=== PATIENT | male | born 1985 | race Caucasian/White ===

== ENCOUNTER 2020-05-24 07:27 | Emergency (ER) | payer SELFPAY ==
--- NOTE | ~2020-05-24 | CT_ITS ---
EXAMINATION: CT abdomen pelvis w con DATE: 05/24/2020 08:45 INDICATION: Left lower quadrant abdominal pain TECHNIQUE: Computed tomography (CT) of the abdomen and pelvis was performed with 100 cc Omnipaque 350 intravenous contrast. Automated exposure control and iterative reconstruction technique were employe d. Exam dose: 361.36 mGy-cm total exam DLP. COMPARISON: 01/18/2019 CT abdomen pelvis FINDINGS: The lung bases are clear. Normal heart size. No pericardial or pleural effusion. Diffuse hepatic steatosis. No hepatic, splenic, pancreatic, and adrenal or renal space-occupying mass lesion is evident. No bile duct or pancreatic duct dilatation. No urinary tract calculus or hydroureteronephrosis. Normal caliber of the abdominal aorta. No intrape ritoneal or retroperitoneal or pelvic mass lesion or adenopathy or ascites. There is mild generalized thickening of the urinary bladder wall. The prostate appears moderately prominent in size. There is epiploic appendagitis in the proximal sigmoid colon on the left. This is usually self-limite d and resolve spontaneously. Otherwise no bowel obstruction, bowel wall thickening, pneumatosis or intraperitoneal free air is det ected. No CT evidence of appendicitis. Included skeletal structures are unremarkable. IMPRESSION: Proximal sigmoid colon epiploic appendagitis, left lower quadrant/pelvic area, in region of clinical complaint of pain Reviewed, dictated and finalized at [facility]. Reviewed, dictated and finalized at location [facility]. IMPRESSION: Proximal sigmoid colon epiploic appendagitis, left lower quadrant/ pelvic area, in region of clinical complaint of pain
[2020-05-24 07:39] VITALS: BP 154/111; PULSE 83; RESP 16; TEMP 37; O2SAT 99
--- NOTE | 2020-05-24 07:42 | ED.ABDPAIN ---
HPI - Abdominal Pain General Chief Complaint: Abdominal Pain Stated Complaint: abd pain Time Seen by Provider: 05/24/20 07:35 Source: patient Mode of arrival: ambulatory Limitations: no limitations History of Present Illness HPI narrative: This patient is a 34 year old male who presents for evaluation of left lower abdominal pain. Patient states he developed pain yesterday and it has been constant. He states he had similar pain 1 week ago but it only lasted 1 hour. He states his pain is worse when he bends or rides in a car. He denies associated nausea, vomiting, fever, chills or urinary complaints. MD elicited complaint: abdominal pain Onset (ago): day(s) Pain Consistency: constant Location: LLQ Pain scale (0-10): 5 Migration to: no migration Exacerbating factors: movement Relieving factors: nothing Related Data Home Medications Medication Instructions Recorded Confirmed amlodipine 10 mg PO DAILY 05/24/20 aspirin 325 mg PO DAILY 05/24/20 hydrochlorothiazide 12.5 mg PO DAILY 05/24/20 hydroxyzine HCl 25 mg PO BID PRN 05/24/20 lisinopril 20 mg PO DAILY 05/24/20 omeprazole 40 mg PO DAILY 05/24/20 sertraline 100 mg PO DAILY 05/24/20 Allergies Allergy/AdvReac Type Severity Reaction Status Date / Time No Known Allergies Allergy Verified 05/24/20 07:42 Review of Systems Review of Systems: All systems reviewed & are unremarkable except as noted in HPI and below Constitutional: Constitutional: Denies chills and Denies fever(s) Gastrointestinal: Gastrointestinal: Reports abdominal pain, Denies diarrhea, Denies nausea and Denies vomiting Genitourinary: Genitourinary: Denies hematuria, Denies dysuria, Reports testicular pain and Denies urinary frequency Musculoskeletal: Musculoskeletal: Denies back pain [facility] Past Medical History Medical History (Updated 05/24/20 @ 09:29 by Adore Box MD) Anxiety Hypertension Surgical History Surgical History (Updated 05/24/20 @ 07:43 by Adore Box MD) History of nasal surgery Social History Social History (Updated 05/24/20 @ 07:43 by Adore Box MD) Smoking packs per day: 1 Smoking cigarettes per day: 20.0 Smoking status: Current every day smoker Alcohol intake: current Alcohol use details: daily drinker Substance use: never Gender identity (if verbalized by the patient): Male Exam Narrative: Exam Narrative: GENERAL: Well-appearing, well-nourished, and in no acute distress. HEAD: Normocephalic, atraumatic EYES: PERRLA and EOMI, conjunctiva clear without discharge THROAT:Mucous membranes moist, Oropharynx normal without erythema, exudate, peritonsillar swelling or fluctuance NECK: Supple, without lymphadenopathy or mass RESPIRATORY: No respiratory distress, Airway patent, Respirations non-labored, Clear to auscultation without rales, rhonchi or wheeze HEART: Regular rate and rhythm. No murmur heard. Normal peripheral pulses. ABDOMEN: Soft,LLQ tenderness, nondistended, normal active bowel sounds. No masses. No rebound or guarding, No organomegaly. EXTREMITIES: No edema, normal strength with full range of motion. SKIN: Warm, dry, normal color without rash NEURO: Alert and oriented x3. CN 2-12 grossly intact. No focal deficits. PSYCH: Normal mood and affect. Course Reevaluation(s) Reevaluation #1: I have discussed with patient CT diagnosis and treatment. He understands discharge plan Date: 05/24/20 Time: 09:26 Vital Signs Vital signs: Vital Signs Temperature 98.6 F 05/24/20 07:39 Pulse Rate 83 05/24/20 07:39 Respiratory Rate 16 05/24/20 07:39 Blood Pressure 154/111 H 05/24/20 07:39 Pulse Oximetry 99 05/24/20 07:39 Temperature 98.6 F 05/24/20 07:39 Pulse Rate 81 05/24/20 09:39 Respiratory Rate 16 05/24/20 09:39 Blood Pressure 157/108 H 05/24/20 09:39 Pulse Oximetry 100 05/24/20 09:39 MDM - Abdominal Pain Lab Data Attestation: I reviewed the patient's lab
[2020-05-24] MEDS: LACTATED RINGERS 1,000 ML 999 ML IV CONT (07:59)
[2020-05-24 08:12] LABS: Basophils Absolute Auto 0.1 K/mm3 (0.0-0.1); Eosinophils Absolute Auto 0.1 K/mm3 (0-0.3); Eosinophils Percent Auto 1.7 % (0-4.4); Hematocrit 50.1 % (42.0-52.0); Immature Granulocyte Absolute 0.03 K/mm3 (0.00-0.031); Immature Granulocyte Percent A 0.5 % (0-0.5); Lymphocytes Absolute Auto 1.49 K/mm3 (0.9-3.2); Lymphocytes Percent Auto 25.8 % (18.3-44.2); Mean Corpuscular HGB Conc 33.9 g/dl (32-36); Mean Corpuscular Hemoglobin 33.7 pg (26-34); Mean Corpuscular Volume 99.2 fl (80-100); Mean Platelet Volume 10.2 fl (7.4-10.4); Monocytes Absolute Auto 0.6 K/mm3 (0.1-0.6); Monocytes Percent Auto 10.2 % (2.6-8.5); Neutrophils Absolute Auto 3.5 K/mm3 (1.3-6.7); Neutrophils Percent Auto 60.8 % (45.5-73.1); Platelet Count Result 283 k/mm3 (150-375); Red Blood Count 5.05 M/mm3 (4.6-6.20); Red Cell Distribution Width 12.5 % (11.5-14.5); White Blood Count 5.8 K/mm3 (4.5-10.0)
[2020-05-24 08:17] LABS: Add Urine Microscopic? NO; Appearance Urine Clear (Clear); Bacteria Urine Trace /hpf; Bilirubin Urine Negative (Negative); Blood Urine Negative (Negative); Color Urine Yellow (Yellow); Glucose Urine UA Negative (Negative); Ketones Urine Negative (Negative); Leukocyte Esterase Ur Negative LEU/UL (Negative); Mucus Urine Heavy /lpf; Nitrate Urine Negative (Negative); Protein Urine Negative (Negative); RBC Urine 0-2 /hpf (0-2); Specific Grav Ur 1.016 (1.001-1.035); Urobilinogen Urine Negative mg/dL (<2.0); WBC Urine 0-3 /hpf
[2020-05-24 08:24] LABS: Alanine Aminotransferase 48 U/L (4-50); Albumin Level 4.6 g/dL (3.5-5.1); Alkaline Phosphatase 103 U/L (38-126); Aspartate Amino Transferase 47 U/L (17-59); Bilirubin,Total 0.4 mg/dL (0.2-1.3); Blood Urea Nitrogen 7 mg/dL (9-20); Calcium 9.4 mg/dL (8.4-10.2); Carbon Dioxide 27 mmol/L (22-30); Chloride 106 mmol/L (98-107); Estimated CRCL calculation 132 ml/min; Estimated Glomerular Filt Rate > 60; Glucose 121 mg/dL (75-110); Lipase 112 U/L (23-300); Potassium 4.3 mmol/L (3.4-5.0); Sodium 140 mmol/L (137-145)
[2020-05-24 09:39] VITALS: BP 157/108; PULSE 81; RESP 16; O2SAT 100
--- NOTE | 2020-05-29 09:44 | PC.NURSE ---
Late entry: Iv fluids completed prior to discharge 05/24/2020
== END 2020-05-24 09:40 | disposition home or self-care (01) ==
PROVIDERS: Emergency Provider General Practice
DX: K63.89 Other specified diseases of intestine (principal); R10.32 Left lower quadrant pain; F41.9 Anxiety disorder, unspecified; I10 Essential (primary) hypertension; Z79.82 Long term (current) use of aspirin; F17.210 Nicotine dependence, cigarettes, uncomplicated
CPT/HCPCS: 36415; 74177; 80053; 81003; 83690; 85025; 96360; 96361; 99284; J7120; Q9967

== ENCOUNTER 2021-06-06 10:25 | Emergency (ER) | payer OTHER, SELFPAY ==
--- NOTE | ~2021-06-06 | XR_ITS ---
XR chest 2V DATE: 06/06/2021 10:46 INDICATION: Left chest pain. Smoker. TECHNIQUE: PA and lateral views COMPARISON: 04/10/2018 PA and lateral chest FINDINGS: Normal heart size. No hilar or mediastinal enlargement. No pulmonary infiltrate or consolid ation, pleural effusion or pulmonary vascular congestion or pneumothorax. IMPRESSION: No active cardiopulmonary disease Reviewed, dictated and finalized at location [facility].
[2021-06-06 10:30] VITALS: BP 172/112; PULSE 80; RESP 16; TEMP 36.6; O2SAT 100
--- NOTE | 2021-06-06 10:35 | ECG_ITS ---
Measurements Intervals [place] Rate: 76 P: 63 AR: 190 QRS: 5 QRSD: 113 T: 52 QT: 370 QTc: 418 Interpretive Statements SINUS RHYTHM INTRAVENTRICULAR CONDUCTION DELAY BORDERLINE ECG Electronically Signed On 06-06-2021 11:11:35 CDT by Sarmad He D.O.
[2021-06-06 10:49] LABS: Basophils Absolute Auto 0.1 K/mm3 (0.0-0.1); Basophils Percent Auto 0.6 % (0.2-1.2); Eosinophils Percent Auto 0.3 % (0-4.4); Hematocrit 49.5 % (42.0-52.0); Hemoglobin 17.1 g/dL (14.0-18.0); Immature Granulocyte Absolute 0.03 K/mm3 (0.00-0.031); Immature Granulocyte Percent A 0.3 % (0-0.5); Lymphocytes Percent Auto 12.7 % (18.3-44.2); Mean Corpuscular HGB Conc 34.5 g/dl (32-36); Mean Corpuscular Hemoglobin 34.5 pg (26-34); Mean Corpuscular Volume 99.8 fl (80-100); Mean Platelet Volume 10.2 fl (7.4-10.4); Monocytes Absolute Auto 0.6 K/mm3 (0.1-0.6); Neutrophils Absolute Auto 6.8 K/mm3 (1.3-6.7); Neutrophils Percent Auto 79.1 % (45.5-73.1); Platelet Count Result 193 k/mm3 (150-375); Red Blood Count 4.96 M/mm3 (4.6-6.20); Red Cell Distribution Width 11.9 % (11.5-14.5); White Blood Count 8.6 K/mm3 (4.5-10.0)
[2021-06-06 10:59] LABS: Anion Gap 8 mmol/L (8-16); Blood Urea Nitrogen 7 mg/dL (9-20); Calcium 9.6 mg/dL (8.4-10.2); Carbon Dioxide 28 mmol/L (22-30); Chloride 106 mmol/L (98-107); Estimated CRCL calculation 113 ml/min; Estimated Glomerular Filt Rate > 60; Glucose 119 mg/dL (65-110); Sodium 142 mmol/L (137-145)
[2021-06-06 11:08] LABS: INR 0.8; Prothrombin Time 11.5 Seconds (11.1-14.7)
[2021-06-06 11:09] LABS: Partial Thromboplastin Time 27.5 SECONDS (22.3-36.8)
[2021-06-06 11:15] LABS: Troponin I < 0.012 ng/mL (0.000-0.034)
[2021-06-06 11:48] LABS: D Dimer 0.34 ug/mL (<0.48)
[2021-06-06] MEDS: KETOROLAC 30 MG/ML VIAL (*BKC) IV PUSH (12:06)
[2021-06-06 12:30] VITALS: BP 155/103; PULSE 66; RESP 20; O2SAT 99
--- NOTE | 2021-06-06 13:28 | ED.CHESTPAIN ---
HPI - Chest Pain General Chief Complaint: Chest Pain Stated Complaint: chest pain Time Seen by Provider: 06/06/21 10:29 History of Present Illness HPI narrative: Patient is a 35-year-old male who presents ER with left-sided chest pain. Ongoing for last month. Left-sided. Associate with shortness of breath at times. No sinus congestion or sore throat or productive cough. Cannot describe any aggravating symptoms. No alleviating factors. No history of UT. No history of PE. No lower extremity swelling. No hemoptysis. Related Data Home Medications Medication Instructions Recorded Confirmed amlodipine 10 mg PO DAILY 05/24/20 aspirin 325 mg PO DAILY 05/24/20 hydrochlorothiazide 12.5 mg PO DAILY 05/24/20 hydroxyzine HCl 25 mg PO BID PRN 05/24/20 lisinopril 20 mg PO DAILY 05/24/20 omeprazole 40 mg PO DAILY 05/24/20 sertraline 100 mg PO DAILY 05/24/20 Allergies Allergy/AdvReac Type Severity Reaction Status Date / Time No Known Allergies Allergy Verified 05/24/20 07:42 Review of Systems Review of Systems: All systems reviewed & are unremarkable except as noted in HPI and below Constitutional: Constitutional: Denies chills, Denies fever(s) and Denies weakness ENT: Denies nasal congestion and Denies sore throat Cardiovascular: Cardiovascular: Reports chest pain, Denies rapid heart rate and Denies radiating jaw, neck or arm pain Respiratory: Respiratory: Denies chest congestion, Denies cough and Reports dyspnea Gastrointestinal: Gastrointestinal: Denies abdominal pain, Denies nausea and Denies vomiting PMFSH Past Medical History Medical History (Updated 06/06/21 @ 13:50 by John Bowles MD) Anxiety Depression GERD (gastroesophageal reflux disease) Hypertension TIA (transient ischemic attack) Surgical History Surgical History (Updated 05/24/20 @ 07:43 by Adore Box MD) History of nasal surgery Social History Social History (Updated 05/24/20 @ 07:43 by Adore Box MD) Smoking packs per day: 1 Smoking cigarettes per day: 20.0 Smoking status: Current every day smoker Alcohol intake: current Alcohol use details: daily drinker Substance use: never Gender identity (if verbalized by the patient): Male Exam Narrative: GENERAL: Well-appearing, well-nourished, and in no acute distress. HEAD: Normocephalic, atraumatic. ENT: Mucous membranes moist. CHEST: Clear to auscultation. No respiratory distress. No reproducible chest wall tenderness. HEART: Regular rate and rhythm. Normal peripheral pulses. ABDOMEN: Soft, nontender, nondistended. EXTREMITIES: Normal range of motion. No edema. SKIN: Warm, dry, no rash. NEURO: Alert and oriented x3. PSYCH: Normal mood and affect. Course Course Emergency Course: Pain improved with Toradol. Informed results. Discharge home. Vital Signs Vital signs: Vital Signs Temperature 97.8 F 06/06/21 10:30 Pulse Rate 80 06/06/21 10:30 Respiratory Rate 16 06/06/21 10:30 Blood Pressure 172/112 H 06/06/21 10:30 Pulse Oximetry 100 06/06/21 10:30 Temperature 97.8 F 06/06/21 10:30 Pulse Rate 74 06/06/21 14:15 Respiratory Rate 18 06/06/21 14:15 Blood Pressure 144/104 H 06/06/21 14:15 Pulse Oximetry 100 06/06/21 14:15 MDM - Chest Pain Lab Data Result diagrams: 06/06/21 10:37 06/06/21 10:37 Labs: Lab Results 06/06/21 06/06/21 06/06/21 Range/Units 10:37 10:37 10:37 WBC 8.6 (4.5-10.0) K/mm3 RBC 4.96 (4.6-6.20) M/mm3 Hgb 17.1 (14.0-18.0) g/dL Hct 49.5 (42.0-52.0) % MCV 99.8 (80-100) fl MCH 34.5 H (26-34) pg MCHC 34.5 (32-36) g/dl RDW 11.9 (11.5-14.5) % Plt Count 193 (150-375) k/mm3 MPV 10.2 (7.4-10.4) fl Immature Gran % (Auto) 0.3 (0-0.5) % Neut % (Auto) 79.1 H (45.5-73.1) % Lymph % (Auto) 12.7 L (18.3-44.2) % [place] % (Auto) 7.0 (2.6-8.5) % Eos % (Auto) 0.3 (0-4.4) % Baso % (Auto)
[2021-06-06 13:45] VITALS: BP 147/107; PULSE 71; RESP 17; O2SAT 100
[2021-06-06 14:15] VITALS: BP 144/104; PULSE 74; RESP 18; O2SAT 100
[2021-06-06 14:28] LABS: Troponin I < 0.012 ng/mL (0.000-0.034)
[2021-06-06 15:15] VITALS: BP 152/116; PULSE 72; RESP 15; O2SAT 94
[2021-06-06 15:45] VITALS: BP 157/105; PULSE 64; RESP 20; O2SAT 98
== END 2021-06-06 15:45 | disposition home or self-care (01) ==
PROVIDERS: Emergency Medicine; Emergency Provider Emergency Medicine
DX: R07.9 Chest pain, unspecified (principal); I10 Essential (primary) hypertension; K21.9 Gastro-esophageal reflux disease without esophagitis; Z86.73 Personal history of transient ischemic attack (TIA), and cerebral infarction without residual deficits; F41.9 Anxiety disorder, unspecified; F32.9 Major depressive disorder, single episode, unspecified; Z79.82 Long term (current) use of aspirin; F17.210 Nicotine dependence, cigarettes, uncomplicated; I45.9 Conduction disorder, unspecified
CPT/HCPCS: 36415; 71046; 80048; 84484; 85025; 85380; 85610; 85730; 93005; 96374; 99284; J1885

== ENCOUNTER 2021-10-16 13:23 | Emergency (ER) | payer OTHER, SELFPAY ==
--- NOTE | ~2021-10-16 | CT_ITS ---
EXAMINATION: CT abdomen pelvis w con EXAM DATE: 10/16/2021 18:17 INDICATION: Abdominal pain. TECHNIQUE: Spiral CT of the abdomen and pelvis was performed following intravenous injection of 100 m L Omnipaque 350. Axial, coronal and sagittal images of the abdomen and pelvis were reviewed. The do se-length product (DLP) for this examination was 376.93 mGy-cm. The exposure was tailored according to patient size (auto mA exposure control), and iterative reconstruction (ASIR) was used as additiona l dose reduction technique. Comparison is made to prior examination from 05/24/2020. FINDINGS: The liver, spleen, adrenal glands and pancreas are unremarkable. Gallbladder is unremarkab le. No biliary obstruction. Portal and splenic veins are patent. Kidneys enhance symmetrically. T here is no hydronephrosis. The prostate is unremarkable. The bladder is unremarkable. There is no retroperitoneal or pelvic lymphadenopathy. Small focus of circumscribed fat in the left lower quadrant along the antimesenteric border of the de scending colon, could be epiploic appendagitis (sigmoid region of this on prior CT last year). The ap pendix is normal. The stomach and small bowel are unremarkable. There is expected amount of colonic stool. No free intraperitoneal gas. The heart is normal in size. There are no pericardial or pl eural effusions. The lung bases are unremarkable. There are no osteoblastic or osteolytic lesions i dentified. IMPRESSION: Possible descending colonic epiploic appendagitis. Self-limiting condition. Reviewed, dictated and finalized at location [facility]. 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 Self-limiting co ndition.
--- NOTE | ~2021-10-16 | XR_ITS ---
EXAMINATION: XR chest 2V EXAM DATE: 10/16/2021 17:49 INDICATION: Chest pain . TECHNIQUE: Frontal and lateral projections of the chest obtained and reviewed. Comparison is made to prior examination from 06/06/2021. FINDINGS: The lungs are clear. There are no pleural effusions. The cardiomediastinal silhouette is within normal limits. There is no pneumothorax suspected. The bones and soft tissues are unremarkab le. IMPRESSION: No acute cardiopulmonary findings. Reviewed, dictated and finalized at location A. [employer] [facility] [employer]
[2021-10-16 13:36] VITALS: BP 159/110; PULSE 82; RESP 16; TEMP 36.9; O2SAT 100
--- NOTE | 2021-10-16 17:15 | ECG_ITS ---
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
--- NOTE | 2021-10-16 17:17 | ED.GENADULT ---
HPI - General Adult General Chief complaint: Abdominal Pain Stated complaint: left abd pain Time Seen by Provider: 10/16/21 15:48 Source: patient Mode of arrival: ambulatory Limitations: no limitations History of Present Illness HPI narrative: Patient presents for evaluation of left lower quadrant pain since yesterday. Pain has been constant but is progressively worsening since the time of symptom onset. Reports the pain being a pressure and rates severity as 8/10. He has experienced nausea earlier today but that has since resolved. He denies any fever, chills, change in bowel pattern. Last bowel movement was this morning, solid in consistency, without the presence of blood or mucous in the stool. No urinary symptoms. No hx of abdominal surgeries. He admits to drinking about 12 beers per day. Last ETOH intake was this morning, with one beer at that time. He denies any illicit drug use. He has chest pain from time to time, with the most recent episode being 2 days ago. He states that this typically occurs when he smokes too many cigarettes. He has some shortness of breath and notes a cough when he smokes too much. He has never had COVID and states that he has received his COVID vaccination. No recent sick contacts to his knowledge. Related Data Allergies Allergy/AdvReac Type Severity Reaction Status Date / Time No Known Allergies Allergy Verified 10/16/21 17:21 Review of Systems Review of Systems: CONSTITUTIONAL: Denies fever, chills, or sweats. EYES: Denies visual changes, redness, or discharge. ENT: Denies rhinorrhea, congestion, sore throat, or otalgia. CARDIOVASCULAR: Reports chest pain recently, although not currently. Denies palpitations, or edema. RESPIRATORY: Reports recent cough and shortness of breath, although none currently GASTROINTESTINAL: Reports abdominal pain. Reports nausea earlier, now resolved. Denies vomiting, constipation and diarrhea GENITOURINARY: Denies dysuria or hematuria. SKIN: Denies rash or itching. MUSCULOSKELETAL: Denies back pain, joint pain, or myalgia. NEUROLOGIC: Denies headache, numbness, dizziness, or weakness. PSYCHIATRIC: Denies anxiety or depression. [facility] Past Medical History Medical History Anxiety Depression GERD (gastroesophageal reflux disease) Hyperlipidemia Hypertension TIA (transient ischemic attack) Surgical History Surgical History History of nasal surgery Family History Family History Mother Diabetes mellitus Sibling Diabetes mellitus Sibling Diabetes mellitus Social History Social History Smoking packs per day: 1 Smoking cigarettes per day: 20.0 Smoking status: Current every day smoker Alcohol intake: current Alcohol use details: daily drinker Substance use: never Additional living arrangements comments: Lives with girlfriend Gender identity (if verbalized by the patient): Male Sexual Orientation (if Verbalized by the Patient): Straight or Heterosexual Spiritual care concerns: No Exam Narrative: GENERAL: Well-appearing, well-nourished, and in no acute distress. HEAD: Normocephalic, atraumatic. EYES: PERRLA and EOMI. ENT: Nares clear, no rhinorrhea or epistaxis. Mucous membranes moist. Oropharynx without tonsillar hypertrophy exudate or other lesions. Bilateral TMs pearly booth nonbulging NECK: Supple. No adenopathy or masses. No carotid bruits or JVD CHEST: Clear to auscultation. No respiratory distress. No wheezes rales or rhonchi HEART: Regular rate and rhythm. No murmur heard. Normal peripheral pulses. ABDOMEN: Soft, tenderness in LUQ, BLQ and suprapubic region. Abdomen is nondistended, normal active bowel sounds. EXTREMITIES: Normal range of motion. No edema. SKIN: Warm,
[2021-10-16 17:23] VITALS: BP 151/111; PULSE 78; RESP 16; O2SAT 98
[2021-10-16 17:23] LABS: Basophils Absolute Auto 0.1 K/mm3 (0.0-0.1); Basophils Percent Auto 0.6 % (0.2-1.2); Eosinophils Absolute Auto 0.1 K/mm3 (0-0.3); Eosinophils Percent Auto 1.2 % (0-4.4); Hemoglobin 16.7 g/dL (14.0-18.0); Immature Granulocyte Absolute 0.03 K/mm3 (0.00-0.031); Immature Granulocyte Percent A 0.3 % (0-0.5); Lymphocytes Absolute Auto 1.38 K/mm3 (0.9-3.2); Lymphocytes Percent Auto 14.5 % (18.3-44.2); Mean Corpuscular HGB Conc 34.8 g/dl (32-36); Mean Corpuscular Hemoglobin 35.1 pg (26-34); Mean Corpuscular Volume 100.8 fl (80-100); Mean Platelet Volume 10.5 fl (7.4-10.4); Monocytes Absolute Auto 0.9 K/mm3 (0.1-0.6); Monocytes Percent Auto 8.9 % (2.6-8.5); Neutrophils Absolute Auto 7.1 K/mm3 (1.3-6.7); Neutrophils Percent Auto 74.5 % (45.5-73.1); Platelet Count Result 197 k/mm3 (150-375); Red Blood Count 4.76 M/mm3 (4.6-6.20); Red Cell Distribution Width 11.6 % (11.5-14.5); White Blood Count 9.5 K/mm3 (4.5-10.0)
--- NOTE | 2021-10-16 17:23 | PC.NURSE ---
Called lab at 1724 spoke with Eugenie, agreed to add Sona to green top in lab
[2021-10-16 17:27] LABS: Add Urine Microscopic? NO; Appearance Urine Clear (Clear); Bilirubin Urine Negative (Negative); Blood Urine Negative (Negative); Color Urine Yellow (Yellow); Glucose Urine UA Negative (Negative); Ketones Urine Negative (Negative); Leukocyte Esterase Ur Negative LEU/UL (Negative); Nitrate Urine Negative (Negative); Protein Urine Negative (Negative); Specific Grav Ur 1.011 (1.001-1.035); Urobilinogen Urine Negative mg/dL (<2.0)
[2021-10-16] MEDS: FAMOTIDINE 20 MG/2 ML VIAL IV PUSH (17:30)
[2021-10-16] MEDS: MORPHINE SULFATE (*CRX) 2 MG/ML INJ IV PUSH (17:30)
[2021-10-16 17:33] LABS: Alanine Aminotransferase 22 U/L (4-50); Albumin Level 4.6 g/dL (3.5-5.1); Alkaline Phosphatase 95 U/L (38-126); Anion Gap 8 mmol/L (8-16); Aspartate Amino Transferase 33 U/L (17-59); Bilirubin,Total 0.8 mg/dL (0.2-1.3); Blood Urea Nitrogen 9 mg/dL (9-20); Calcium 9.7 mg/dL (8.4-10.2); Carbon Dioxide 29 mmol/L (22-30); Chloride 104 mmol/L (98-107); Estimated CRCL calculation 99 ml/min; Estimated Glomerular Filt Rate > 60; Glucose 107 mg/dL (65-110); Lipase 64 U/L (23-300); Potassium 4.1 mmol/L (3.4-5.0); Sodium 141 mmol/L (137-145)
[2021-10-16 17:44] LABS: Troponin I < 0.012 ng/mL (0.000-0.034)
[2021-10-16 19:12] VITALS: BP 166/108; PULSE 88; RESP 16; O2SAT 100
== END 2021-10-16 19:13 | disposition home or self-care (01) ==
PROVIDERS: Emergency Provider Nurse Practitioner
DX: K63.89 Other specified diseases of intestine (principal); K21.9 Gastro-esophageal reflux disease without esophagitis; E78.5 Hyperlipidemia, unspecified; I10 Essential (primary) hypertension; Z86.73 Personal history of transient ischemic attack (TIA), and cerebral infarction without residual deficits; F17.210 Nicotine dependence, cigarettes, uncomplicated
CPT/HCPCS: 36415; 71046; 74177; 80053; 81003; 83690; 84484; 85025; 93005; 96374; 96375; 99284; J2270; Q9967